=== PATIENT | male | born 1975 | race Caucasian/White ===

== ENCOUNTER 2020-09-11 21:26 | Observation (INO) | payer OTHER ==
[~2020-09-11] VITALS: Ht 175.3 cm; Wt 73.5 kg
[2020-09-11 21:41] LABS: Hematocrit 40.9 % (37.0-53.0); Hemoglobin 13.9 g/dL (13.5-17.5); Mean Corpuscular HGB 31.7 pg (26.0-34.0); Mean Corpuscular Volume 93 fL (80-100); Mean Platelet Volume 11.1 fL (9.1-12.4); Platelet Count 183 K/mm3 (150-400); RDW Coefficient Variation 14.8 % (11.7-14.2); RDW Standard Deviation 51.8 fL (35.1-46.3); Red Blood Cell Count 4.39 M/mm3 (4.30-5.90); White Blood Cell Count 5.47 K/mm3 (4.00-11.30)
[2020-09-11 21:59] LABS: Alanine Aminotransfer (ALT/SGP 25 U/L (12-78); Albumin, Blood 3.7 g/dL (3.4-5.0); Albumin/Globulin Ratio 1.4 (0.8-1.8); Alk Phos 48 U/L (50-136); Anion Gap 7 mmol/L (6-16); Aspartate Aminotrans (AST/SGOT 23 U/L (12-37); Bilirubin, Total 0.8 mg/dL (0.1-1.0); Blood Urea Nitrogen 7 mg/dL (8-24); Bun/Creatinine Ratio 7.6 (12.0-20.0); CHOL/HDL RATIO 4.2; CO2, Blood 28 mmol/L (21-32); Calcium, Blood 8.3 mg/dL (8.5-10.1); Chloride, Blood 110 mmol/L (98-108); Cholesterol 170 mg/dL (50-200); Creatinine, Blood 0.92 mg/dL (0.60-1.20); Globulin, Blood 2.7 g/dL (2.2-4.0); Glomerular Filtration Rate >60 (60-); Glucose, Blood 145 mg/dL (70-99); HDL Cholesterol 40 mg/dL (>39); LDL/HDL RATIO 2.6; Low Density Lipoprotein Chol 106 mg/dL (0-110); Potassium, Blood 3.6 mmol/L (3.5-5.5); Sodium, Blood 145 mmol/L (136-145); Total Protein, Blood 6.4 g/dL (6.4-8.2); Triglycerides 121 mg/dL (30-160); Troponin I <0.015 ng/mL (0.000-0.040); Very Low Density Lipoprot Chol 24 mg/dL (6-32)
[2020-09-11] MEDS ORDERED: GABA300 PO (21:59)
[2020-09-11] MEDS ORDERED: OMEP20ER PO (21:59)
--- NOTE | 2020-09-12 04:10 | NUR ---
SHIFT SUMMARY PT WAS MORE ALERT, ORIENTED, AND ACTIVE THAN PREVIOUS NOC SHIFT. PT STATED HAVING NO PAIN, WAS COMFORTABLE AND ABLE TO SLEEP. PT WAS ON 2 LPM VIA NC WITH O2 SATS >90%. PT REPORTED NO SOB. VITALS STABLE, BP HYPOTENSIVE 80-90'S SYSTOLIC. HR 90-100. PT STATED FEELING MUCH BETTER AND MORE ENERGETIC. PT HAD A QUIET UNEVENTFUL NIGHT, HAS MORRIS NPO SINCE 2400 AND IS EAGER FOR PROCEDURE.
--- NOTE | 2020-09-12 05:23 | NUR ---
SHIFT SUMMARY PT ARRIVED TO THE UNIT SHORTLY AFTER 0100 FROM THE MESSENGER COPY. TR BAND INPLACE ON RIGHT RADIAL. PT STATED MILD CHEST PAIN AT 2 OF 10. VITALS, BP 132/91, HR 82. PT WAS ALERT AND ORIENTED AND ABLE TO ANSWER QUESTIONS THROUGH THE ADMISSION PROCESS. WAS AT BEDSIDE FOR ADMISSION. CLOSE VITAL SIGN MONITORING COMPLETE AND VITALS REMAINED STABLE. PT STATED AN INCREASE IN CHEST PAIN, PRN MEDICATION GIVEN AND PT REPORTED PAIN WAS MINIMAL. TR BAND RADIAL SITE HAD VERY LITTLE DRAINAGE AND DID NOT BLEED. PULSES PRESENT DISTAL TO SITE AND NO PAIN, SWELLING, OR DISCOLORATION. EKG COMPLETED IN AM, PT STATES BEING COMFORTABLE AND CONTINUING VITAL SIGN MONITORING ORDERS.
[2020-09-12 06:33] LABS: Troponin I <0.015 ng/mL (0.000-0.040)
--- NOTE | 2020-09-12 09:50 | NUR ---
Echocardiogram completed.
[2020-09-12 11:46] LABS: Influenza A, PCR NEGATIVE (NEGATIVE); Influenza B, PCR NEGATIVE (NEGATIVE); Resp Syncytial Virus, PCR NEGATIVE (NEGATIVE); SARS-Cov-2 (COVID-19) PCR, MMC NEGATIVE (NEGATIVE)
[2020-09-12] MEDS ORDERED: IBUP600 PO (12:38)
--- NOTE | 2020-09-12 15:26 | NUR ---
PT DISCHARGED TO HOME TODAY WITH DISCHARGE ORDERS. PT WAS SEEN BY DR ROA FOR THE SHIFT CLEARED PT TO GO HOME, NO CHEST PAIN REPORTED FOR BENITA SHIFT, CHEST PRESSURE 2/10 THAT IS STABLE AND TOLERABLE, REFUSED ANY PAIN MEDS THIS AM. ECHO DONE WITH EF 50-55%, COVID NEGATIVE. PT WAS MADE AWARE OF THE RESULT PRIOR TO DISCHARGE, NO NEW MEDICATION ORDERED, PT CAN TAKE OTC IBUPROFEN 600MG PRN FOR PAIN. RIGHT RADIAL ACCESS SITE INTACT, NO REDNESS/BLEEDING NOTED ON THE SITE. DISCHARGE INSTRCUTIONS DISCLOSED WITH THE PT AND THE , BOTH VERBALIZED UNDERSTANDING, NO OTHER ISSUES ENCOUNTERED FOR THE SHIFT. ALL BELONGINGS SENT WITH PT, TO DRIVE PT HOME, PT IS AMBULATORY ESCORTED OUT FOR DISCHARGE
== END 2020-09-12 13:30 | disposition home or self-care (01) ==
LOC: ER 21:26 → ICUW 21:27 → PCU 21:27 → EDBEDREQ 23:29 → ICUW 09-12 00:35 → PCU 09-12 00:55
PROVIDERS: Emergency Medicine; Family Medicine; ADMIT Internal Medicine
DX: R07.2 Precordial pain (principal); F41.9 Anxiety disorder, unspecified; R25.1 Tremor, unspecified; Z88.0 Allergy status to penicillin; Z20.822 Contact with and (suspected) exposure to COVID-19
CPT/HCPCS: 0241U; 36415; 80053; 80061; 83036; 83690; 83735; 84484; 85027; 85651; 86141; 86850; 86900; 86901; 93005; 93010; 93306; 93458; 96361; 96372; 96374; 96375; 96376; 99152; 99285-25; A9270; C1769; C1894; G0378; J1644; J1650; J2250; J2270; J2405; J3010; J7030; J7040; J7050; Q9967